=== PATIENT | female | born 1990 | race Caucasian/White ===

== ENCOUNTER 2018-04-20 23:28 | Emergency (ER) | payer BC ==
[~2018-04-20] VITALS: Ht 180.3 cm; Wt 61.2 kg
[2018-04-20 23:53] VITALS: BP 138/77
== END 2018-04-21 01:00 | disposition left against medical advice (07) ==
LOC: ER 23:31
DX: R10.9 Unspecified abdominal pain (principal); R11.0 Nausea; Z53.21 Procedure and treatment not carried out due to patient leaving prior to being seen by health care provider